=== PATIENT | female | born 1975 | race Hispanic/Latino ===

== ENCOUNTER 2018-02-16 08:34 | Emergency (ER) | payer BC, SELFPAY ==
[2018-02-16] MEDS ORDERED: CYCLOBENZAPRINE 10 MG TAB ONE (09:32)
[2018-02-16] MEDS ORDERED: KETOROLAC 30 MG/ML INJ ONE (09:32)
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
== END 2018-02-16 10:31 | disposition home or self-care (01) ==
LOC: ER 08:34
DX: M54.12 Radiculopathy, cervical region (principal); V49.40XA Driver injured in collision with unspecified motor vehicles in traffic accident, initial encounter
CPT/HCPCS: 96372; 99284